=== PATIENT | female | born 1950 | race Caucasian/White ===

== ENCOUNTER → 2018-01-13 08:47 | Outpatient (CLI) | payer OTHER, MEDICARE, SELFPAY | PROVIDERS: Visit Provider Physician Assistant | DX: R30.0 Dysuria (principal) | CPT/HCPCS: 87077; 87086; 87186 ==

== ENCOUNTER → 2018-02-17 15:20 | Outpatient (CLI) | payer OTHER, MEDICARE, SELFPAY | PROVIDERS: PCP Family Medicine; Visit Provider Family Medicine | DX: R30.0 Dysuria (principal) | CPT/HCPCS: 87077; 87086; 87186 ==

== ENCOUNTER → 2018-03-08 08:57 | Outpatient (CLI) | payer OTHER, MEDICARE, SELFPAY ==
[2018-03-08 11:25] LABS: Alanine Aminotransferase 20 IU/L (9-52); Albumin 4.5 g/dL (3.5-5.0); Albumin Globulin Ratio 1.6 (1.0-2.8); Alkaline Phosphatase 45 U/L (38-126); Aspartate Aminotransferase 30 IU/L (14-36); BUN Creatinine Ratio 18.8 (6-22); Bilirubin Total 0.4 mg/dL (0.2-1.3); Blood Urea Nitrogen 15 mg/dL (7-17); Calcium 9.6 mg/dL (8.4-10.2); Carbon Dioxide 26 mmol/L (22-32); Chloride 105 mmol/L (98-107); Cholesterol 161 mg/dL (140-199); Estimated Glomerular Filt Rate > 60.0 mL/min (>60); Globulin 2.9 g/dL (1.7-4.1); Glucose 90 mg/dL (80-110); HDL Cholesterol 73 mg/dL (40-60); HEMOLYSIS < 15 (0-50); LDL Cholesterol Calculated 59 mg/dL (<100); Potassium 4.4 mmol/L (3.4-5.1); Sodium 143 mmol/L (137-145); Total Protein 7.4 g/dL (6.3-8.2); Triglycerides 145 mg/dL (35-150)
== END ==
PROVIDERS: PCP Family Medicine; Visit Provider Family Medicine
DX: E78.5 Hyperlipidemia, unspecified (principal)
CPT/HCPCS: 36415; 80053; 80061

== ENCOUNTER → 2018-06-15 08:41 | Outpatient (CLI) | payer OTHER, MEDICARE, SELFPAY ==
[2018-06-15 09:48] LABS: Add Manual Diff / Slide Review NO; Basophils Absolute Auto 0 /uL (0-100); Basophils Percent Auto 0.8 % (0-2); Eosinophils Absolute Auto 100 /uL (0-450); Eosinophils Percent Auto 1.3 % (2-4); Hematocrit 40.5 % (36-46); Hemoglobin 13.2 g/dL (12.0-16.0); Lymphocytes Absolute Auto 2800 /uL (1100-4500); Lymphocytes Percent Auto 42.7 % (25-40); Mean Corpuscular HGB Conc 32.6 % (30-36); Mean Corpuscular Hemoglobin 29.5 PG (26-34); Mean Corpuscular Volume 90.5 fL (80-100); Monocytes Absolute Auto 500 /uL (0-900); Monocytes Percent Auto 7.4 % (3-14); Neutrophils Absolute Auto 3100 /uL (1500-7000); Neutrophils Percent Auto 47.8 % (50-75); Platelet Count 274 X10^3/uL (150-400); Red Blood Cell Count 4.47 X10^6/uL (4.0-5.2); Red Cell Distribution Width 13.8 % (11.6-14.8); White Blood Cell Count 6.5 X10^3/uL (4.5-11.0)
[2018-06-15 09:50] LABS: Appearance Urine UA CLEAR; Bilirubin Urine UA NEGATIVE (NEGATIVE); Color Urine UA YELLOW; Glucose Urine UA NEGATIVE (Negative); Ketones Urine UA NEGATIVE (NEGATIVE); Leukocyte Esterase Urine UA NEGATIVE (NEGATIVE); Nitrite Urine UA NEGATIVE (Negative); Occult Blood Urine UA 2+ (Negative); Protein Urine UA NEGATIVE (Negative); Specific Gravity Urine UA 1.025 (1.000-1.035); Urobilinogen Urine UA 0.2 E.U./dL (0.2)
[2018-06-15 10:04] LABS: Alanine Aminotransferase 43 IU/L (9-52); Albumin 4.8 g/dL (3.5-5.0); Albumin Globulin Ratio 1.6 (1.0-2.8); Alkaline Phosphatase 49 U/L (38-126); Aspartate Aminotransferase 27 IU/L (14-36); Bacteria Urine Few (2-10); Bilirubin Total 0.5 mg/dL (0.2-1.3); Blood Urea Nitrogen 18 mg/dL (7-17); Calcium 10.3 mg/dL (8.4-10.2); Carbon Dioxide 30 mmol/L (22-32); Chloride 99 mmol/L (98-107); Cholesterol 176 mg/dL (140-199); Culture Indicated Urine Cult Not Indicated; Estimated Glomerular Filt Rate > 60.0 mL/min (>60); Glucose 95 mg/dL (80-110); HDL Cholesterol 88 mg/dL (40-60); HEMOLYSIS < 15 (0-50); LDL Cholesterol Calculated 61 mg/dL (<100); Mucus Urine 1+ (Negative); RBC Urine 1-5/HPF (0-5/HPF); Sodium 140 mmol/L (137-145); Squamous Epithelial Cell Urine 5-10 /HPF; Total Protein 7.8 g/dL (6.3-8.2); Triglycerides 135 mg/dL (35-150); WBC Urine 1-5/HPF (0-5/HPF)
[2018-06-15 10:32] LABS: Vitamin D 25 Hydroxy (D3) 63.2 ng/mL (30.0-100.0)
== END ==
PROVIDERS: PCP Family Medicine; Visit Provider Family Medicine
DX: E78.5 Hyperlipidemia, unspecified (principal); G47.00 Insomnia, unspecified; I10 Essential (primary) hypertension; Z51.81 Encounter for therapeutic drug level monitoring
CPT/HCPCS: 36415; 80053; 80061; 81003; 81015; 82306; 84443; 85025

== ENCOUNTER → 2018-06-30 17:34 | Outpatient (CLI) | payer OTHER, MEDICARE, SELFPAY ==
[2018-06-30 17:43] LABS: Bacteria Urine None Seen
[2018-06-30 19:13] LABS: Appearance Urine UA CLEAR; Bilirubin Urine UA NEGATIVE (NEGATIVE); Color Urine UA YELLOW; Glucose Urine UA NEGATIVE (Negative); Ketones Urine UA NEGATIVE (NEGATIVE); Leukocyte Esterase Urine UA NEGATIVE (NEGATIVE); Nitrite Urine UA NEGATIVE (Negative); Occult Blood Urine UA TRACE-LYSED (Negative); Protein Urine UA NEGATIVE (Negative); Specific Gravity Urine UA 1.025 (1.000-1.035); Urobilinogen Urine UA 0.2 E.U./dL (0.2); pH Urine UA 5.5 (4.5-8.0)
[2018-06-30 19:49] LABS: RBC Urine 0-1/HPF (0-5/HPF); Squamous Epithelial Cell Urine 0-1 /HPF; WBC Urine 0-1/HPF (0-5/HPF)
[2018-06-30 19:50] LABS: Culture Indicated Urine Cult Not Indicated
== END ==
PROVIDERS: PCP Family Medicine; Visit Provider Family Medicine
DX: R31.9 Hematuria, unspecified (principal)
CPT/HCPCS: 81001

== ENCOUNTER 2021-10-30 19:17 | Observation (INO) | payer MEDICARE, OTHER, SELFPAY ==
[2021-10-30] VITALS (12 sets, daily range): BP systolic 151–168; BP diastolic 58–73; PULSE 60–79; RESP 15–27; TEMP 36.3–36.9; O2SAT 97–100; BMI 23.3
--- NOTE | 2021-10-30 19:21 | DI.CT.S_ITS ---
PROCEDURE: CT HEAD/BRAIN WO CON INDICATIONS: fall hit head TECHNIQUE: Noncontrast 4.5 mm thick angled axial sections acquired from the foramen magnum to the vertex, with coronal and sagittal reformats. For radiation dose reduction, the following was used: automated exposure control, adjustment of mA and/or kV according to patient size. COMPARISON: [facility], CT, HEAD WITHOUT CONTRAST, 10/05/2011, 17:24. FINDINGS: Image quality: Excellent. CSF spaces: Basal cisterns are patent. No extra-axial fluid collections. The ventricles are symmetric in size and shape. Brain: No intracranial bleeds or masses. There is cerebral volume loss for age, with resultant ventricular and sulcal prominence. There is intracranial internal carotid artery atherosclerosis. Skull and face: Calvarium and visualized facial bones appear intact, without suspicious lesions. Sinuses: Visualized sinuses and mastoids are clear. IMPRESSION: No evidence acute intracranial process. Dictated by: Marcos Trinh M.D. on 10/30/2021 at 19:47 Approved by: Marcos Trinh M.D. on 10/30/2021 at 19:48
--- NOTE | 2021-10-30 19:54 | ED_ITS ---
HPI - Fall General Chief Complaint: Fall Stated Complaint: fall at [facility] with amnesia Time Seen by Provider: 10/30/21 19:53 History of Present Illness HPI Narrative: 70-year-old woman with a history of hypertension and hyperlipidemia who has a strong family history for cardiac syncope and sudden cardiac . Her father, and uncle and a nephew have all young related to that. 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 She has to live in [place] but has since moved down to [place]. She was back at the [facility], had a double gin and tonic was playing this lots thinking that she needed to go upstairs in get ready for the republican and then woke up in an ambulance. Medics report that security video show her simply upright and then flat on the floor. She has significant amnesia and no recollection of approximately 3-4 hours of time. She is slightly perseverating but not complaining of headache, nausea, vomiting, chest pain, palpitations, any chest pain, any musculoskeletal pain. She has not recently been sick with fevers cough chills. Related Data Home Medications Medication Instructions Recorded Confirmed biotin 1 mg capsule 1 mg PO DAILY 01/13/18 06/23/18 vitamin B complex (B 1 tab PO DAILY 01/13/18 06/23/18 Complex-Vitamin B12 tablet) aspirin 81 mg chewable tablet 81 mg PO DAILY 02/17/18 06/23/18 cholecalciferol (vitamin D3) 50 5 unit PO DAILY 06/23/18 06/23/18 mcg (2,000 unit) capsule Previous Rx's Medication Instructions Recorded benzocaine 10 % mucosal gel See Rx Instructions mucous 06/15/18 membrane DAILY PRN mouth irritation #7.1 grams metoprolol succinate 100 mg 100 mg PO DAILY #90 ea 06/23/18 capsule sprinkle, ext. release 24 hr fluconazole 150 mg tablet 150 mg PO ONCE #1 tab 06/30/18 (Diflucan) nitrofurantoin 100 mg PO BID #14 caps 06/30/18 monohydrate/macrocrystals 100 mg capsule (Macrobid) temazepam 30 mg capsule 30 mg PO BEDTIME PRN sleep #30 caps 10/12/18 metoprolol succinate 100 mg 100 mg PO DAILY #90 tabs 07/18/19 tablet,extended release 24 hr rosuvastatin 20 mg tablet 20 mg PO DAILY #90 tabs 07/18/19 lisinopril 20 mg tablet 20 mg PO DAILY #30 tabs 09/26/19 Allergies Allergy/AdvReac Type Severity Reaction Status Date / Time codeine AdvReac Verified 06/23/18 15:01 CEPHALOSPORIN Allergy Intermediate N/V Uncoded 01/13/18 13:50 SULFA Allergy Intermediate HIVES Uncoded 01/13/18 13:50 Review of Systems Review of Systems Narrative: Remainder of complete review of systems is otherwise unremarkable except for that included in the HPI. Patient History Medical History CAD (coronary artery disease) (2017) Cataract (2017) Cervical spine disease (1962) Chicken pox (1957) Fractures (2014) Gastric ulcer Heart disease Hypertension (2014) Measles (1955) Mumps (1954) Osteoporosis (2014) Scoliosis (1962) Surgical History Anesthesia complication History of cholecystectomy (2000) History of hernia repair (1998) History of hysterectomy (1973) History of spinal fusion (1962) Family History Father Heart disease Hypertension Mother Alzheimer's disease Brother Heart disease Brother Heart disease Hyperlipidemia Hypertension Grandfather No problems noted. Grandmother No problems noted. Grandfather Heart disease Hypertension Grandmother No problems noted. Social History Smoking Status: Never smoker alcohol intake: current Smoking Status: Never smoker Exam Initial Vital Signs Initial Vital Signs: Vital Signs Temperature 98.4 F 10/30/21 19:17 Pulse Rate 60 10/30/21 19:17 Respiratory Rate 16 10/30/21 19:17 Blood Pressure 168/73 H 10/30/21 19:17 Pulse Oximetry 97 10/30/21 19:17 Oxygen Delivery Method 10/30/21 19:17 General: Healthy appearing, in no acute distress. Approximately 4 hours of ret rograde amnesia, mild perseveration but able to describe events up to that time without difficulty. HEENT: Moist mucous membranes, normal sclera with reactive pupils, minor abrasion over the bridge of the nose and some bruising over the left cheek without obvious facial bone injuries Neck: No JVD, supple, no cervical spine tenderness Respiratory: Lungs are clear to auscultation, no wheezing no rales no rhonchi. Full and symmetrical air movement Chest: No musculoskeletal tenderness, no abrasions or contusions Cardiac: Regular rate and rhythm no murmurs no bruits Abdomen: Soft, nontender, good bowel tones, no flank pain Skin: Warm and dry, no rashes Neurologic: Retrograde amnesia but otherwise Grossly neurologically intact with no obvious asymmetries or abnormalities Extremities: Minor contusion to the left 5th finger, well perfused Psych: Cooperative, appropriate insight and affect Course Orders Ordered: ED Orders 10/30/21 19:10 Complete Blood Count AUTO DIFF Stat Comprehensive Metabolic Panel Stat Ethanol (ETOH) Stat Prothrombin Time INR Stat Troponin & CK Cardiac Panel Stat 10/30/21 19:21 CT head/brain wo con Stat Vital Signs Vital signs: Vital Signs - 8 hr 10/30/21 19:17 10/30/21 19:36 10/30/21 20:00 Temperature 98.4 F Pulse Rate 60 67 66 Respiratory Rate 16 Blood Pressure 168/73 H Pulse Oximetry 97 100 100 Oxygen Delivery Method Room Air 10/30/21 20:24 10/30/21 20:24 10/30/21 20:30 Temperature Pulse Rate 66 Respiratory Rate 15 Blood Pressure 160/69 H 151/58 H Pulse Oximetry 100 Oxygen Delivery Method 10/30/21 20:30 Temperature Pulse Rate 65 Respiratory Rate 27 H Blood Pressure Pulse Oximetry 100 Oxygen Delivery Method MDM - Fall Lab Data Result diagrams: 10/30/21 19:10 10/30/21 19:10 Labs: Lab Results 10/30/21 10/30/21 10/30/21 Range/Units 19:10 19:10 19:10 WBC 7.7 (4.5-11.0) X10^3/uL RBC 4.65 (4.0-5.2) X10^6/uL Hgb 13.2 (12.0-16.0) g/dL Hct 39.8 (36-46) % MCV 85.6 (80-100) fL MCH 28.4 (26-34) PG MCHC 33.2 (30-36) % RDW 14.5 (11.6-14.8) % Plt Count 288 (150-400) X10^3/uL Neut % (Auto) 32.1 L (50-75) % Lymph % (Auto) 59.9 H (25-40) % Yell % (Auto) 6.4 (3-14) % Eos % (Auto) 0.9 L (2-4) % Baso % (Auto) 0.7 (0-2) % Neut # (Auto) 2500 (5272-0382) /uL Lymph # (Auto) 4600 H (4924-4553) /uL Yell # (Auto) 500 (0-900) /uL Eos # (Auto) 100 (0-450) /uL Baso # (Auto) 100 (0-100) /uL PT 10.4 (10.1-12.7) SECONDS INR 0.9 (0.9-1.3) Sodium 141 (137-145) mmol/L Potassium 3.5 (3.4-5.1) mmol/L Chloride 101 (98-107) mmol/L Carbon Dioxide 27 (22-32) mmol/L BUN 11 (7-17) mg/dL Creatinine 0.92 (0.52-1.04) mg/dL Estimated GFR > 60 (>60) mL/min BUN/Creatinine Ratio 12.0 (6-22) Glucose 115 H (80-110) mg/dL Calcium 9.8 (8.4-10.2) mg/dL Total Bilirubin 0.3 (0.2-1.3) mg/dL AST 29 (14-36) IU/L ALT 17 (<35) IU/L Alkaline Phosphatase 61 (38-126) U/L Total Creatine Kinase 62 (30-135) U/L CK-MB (CK-2) TNP CK-MB (CK-2) Rel Index TNP Troponin I < 0.012 (0.01-0.034) ng/mL Total Protein 8.8 H (6.3-8.2) g/dL Albumin 5.2 H (3.5-5.0) g/dL Globulin 3.6 (1.7-4.1) g/dL Albumin/Globulin Ratio 1.4 (1.0-2.8) Ethyl Alcohol 185 H ( - 10) mg/dL Point of Care Testing Glucose POC [address] scan - head: Radiologist's Impression: FINDINGS:? Image quality:? Excellent.? ? CSF spaces:? Basal cisterns are patent.? No extra-axial fluid collections.? The ventricles are symmetric in size and shape.? ? Brain:? No intracranial bleeds or masses.? There is cerebral volume loss for age, with resultant ventricular and sulcal prominence.? There is intracranial internal carotid artery atherosclerosis.? ? Skull and face:? Calvarium and visualized facial bones appear intact, without suspicious lesions.? ? Sinuses:? Visualized sinuses and mastoids are clear.? ? IMPRESSION:? No evidence acute intracranial process. ? ? Dictated by: Marcos Trinh M.D. on 10/30/2021 at 19:47 ECG Data Interpretation: Sinus rhythm at a rate of 60 Left bundle branch block No acute ischemic changes MDM Narrative Medical decision making narrative: 70-year-old woman at the [facility], she did have a double in her alcohol level is consistent with that. Video from the can see no suggests acute syncope that is more fitting with acute cardiac syncope rather than alcohol related issues. There is no evidence of stroke, infection or acute coronary syndrome. Given her strong family history for sudden cardiac arrhythmias this is certainly concerning. She also has retrograde amnesia and concussion without evidence of intracranial hemorrhage. Labs are unremarkable aside from the elevated alcohol level. At this time will recommend observation overnight with telemetry. Will need to contact her cardiology office in the morning to see what recent studies have been done, if more needs to be done and arrange for acute follow-up. Care is discussed with the hospitalist service and she is safe for transfer to the floor. Discharge Plan Departure Patient Disposition: Admitted as Observation Clinical Impression: Cardiac syncope, Amnesia (retrograde) Concussion Qualifiers: Encounter type: initial encounter Loss of consciousness presence/duration: with LOC of 30 min or less Qualified Code(s): S06.0X1A - Concussion with loss of consciousness of 30 minutes or less, initial encounter
[2021-10-30 20:03] LABS: INR 0.9 (0.9-1.3); Prothrombin Time 10.4 SECONDS (10.1-12.7)
[2021-10-30 20:08] LABS: Alanine Aminotransferase 17 IU/L (<35); Albumin 5.2 g/dL (3.5-5.0); Albumin Globulin Ratio 1.4 (1.0-2.8); Alkaline Phosphatase 61 U/L (38-126); Aspartate Aminotransferase 29 IU/L (14-36); Bilirubin Total 0.3 mg/dL (0.2-1.3); Blood Urea Nitrogen 11 mg/dL (7-17); Calcium 9.8 mg/dL (8.4-10.2); Carbon Dioxide 27 mmol/L (22-32); Chloride 101 mmol/L (98-107); Creatine Kinase 62 U/L (30-135); Estimated Glomerular Filt Rate > 60 mL/min (>60); Ethanol (ETOH) 185 mg/dL; Globulin 3.6 g/dL (1.7-4.1); Glucose 115 mg/dL (80-110); HEMOLYSIS < 15 (0-50); Potassium 3.5 mmol/L (3.4-5.1); Sodium 141 mmol/L (137-145); Total Protein 8.8 g/dL (6.3-8.2)
[2021-10-30 20:11] LABS: Add Manual Diff / Slide Review NO; Basophils Absolute Auto 100 /uL (0-100); Basophils Percent Auto 0.7 % (0-2); Eosinophils Absolute Auto 100 /uL (0-450); Eosinophils Percent Auto 0.9 % (2-4); Hematocrit 39.8 % (36-46); Hemoglobin 13.2 g/dL (12.0-16.0); Lymphocytes Absolute Auto 4600 /uL (1100-4500); Lymphocytes Percent Auto 59.9 % (25-40); Mean Corpuscular HGB Conc 33.2 % (30-36); Mean Corpuscular Hemoglobin 28.4 PG (26-34); Mean Corpuscular Volume 85.6 fL (80-100); Monocytes Absolute Auto 500 /uL (0-900); Monocytes Percent Auto 6.4 % (3-14); Neutrophils Absolute Auto 2500 /uL (1500-7000); Neutrophils Percent Auto 32.1 % (50-75); Platelet Count 288 X10^3/uL (150-400); Red Blood Cell Count 4.65 X10^6/uL (4.0-5.2); Red Cell Distribution Width 14.5 % (11.6-14.8); White Blood Cell Count 7.7 X10^3/uL (4.5-11.0)
[2021-10-30 20:19] LABS: Troponin I < 0.012 ng/mL (0.01-0.034)
--- NOTE | 2021-10-30 20:38 | PC.NURSE ---
[place] 1400 after having one gin and tonic and playing the slots for a while, she decided to go upstairs to her room and pack up and get ready to go. the next thing she remembers is being in the ambulance being told she had fallen down. pt is unable to answer questions about how she was feeling prior to falling. EMS stated they had her on camera falling/passing out
[2021-10-30 23:47] LABS: COVID19 -Nasal RAPID Negative (Negative)
--- NOTE | 2021-10-31 00:11 | P.HP_ITS ---
History of Present Illness History of Present Illness Date Patient Seen: 10/31/21 Time Patient Seen: 00:11 Chief complaint: [facility] Narrative: Nora Rico is a pleasant 70 year old female who [facility] to her room as she was overnighting to attend a [place] [facility] of a colleague in [place] when apparently she passed out. She does not recall what happened and woke up in the ambulance. She was told by the EMS that her fall was captured on video at the [facility] and apparently she fell from a sitting position rather than arising than falling. She denies any chest pain, dizziness, she does have left-sided facial pain where she fell in addition to bruising on her left arm. She does complain of a mild headache currently. She states that she has an old left bundle branch block she has had for quite some time and always shows up on her EKGs. She stated that yesterday she was ?off? and felt that way this morning but not poor enough to prevent her from attending her friend's [place] [facility] [place]. She felt her normal self when she drove up here. Of concern is that her father, brother, uncle and a nephew have all from sudden cardiac arrest in their 40s and her brother in his 60s. 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 Head CT was negative for any acute intracranial process. EKG indicated a left bundle. She is afebrile, blood pressure is 152/59, heart rate 79, respiratory rate 18, oxygen saturation 100% on room air she weighs 65.7 kg with a BMI of 23.3. CBC and BMP are unremarkable. Troponin is negative, TSH is low at 0.02 and her free T4 is pending she did have an elevated alcohol level of 185 though she did have 2 drinks at the [facility]. Medical, surgical and family history reviewed with the patient. She has a cousin and uncle who in their 40 also of sudden cardiac arrest. Patient History Medical History CAD (coronary artery disease) (2017) Cataract (2017) Cervical spine disease (1962) Chicken pox (8) Fractures (2014) Gastric ulcer Heart disease Hypertension (2014) Measles (1956) Mumps (1955) Osteoporosis (2015) Scoliosis (1963) Surgical History Anesthesia complication History of cholecystectomy (2000) History of hernia repair (1998) History of hysterectomy (1973) History of spinal fusion (1962) Family & Social History Family History (Updated 10/31/21 @ 00:13 by CRISTEL Kothari) Father Heart disease Hypertension Cardiac arrest Mother Alzheimer disease Cardiac arrest Brother Heart disease Brother Heart disease Hyperlipidemia Hypertension Cardiac arrest Grandfather No problems noted. Grandmother No problems noted. Grandfather Heart disease Hypertension Grandmother No problems noted. Safety & Behavioral: Feels Safe in Current Yes Environment Been Physically Hurt or No Threatened By a Person Tobacco & Substance use: Smoking Status Never smoker alcohol intake current Meds Home Medications and Allergies Home Medications Medication Instructions Recorded Confirmed Type rosuvastatin 20 mg tablet 20 mg PO DAILY #90 tabs 07/18/19 10/30/21 Rx lisinopril 20 mg tablet 20 mg PO DAILY #30 tabs 09/26/19 10/30/21 Rx trazodone 100 mg tablet 100 mg PO BEDTIME 10/30/21 10/30/21 History Allergies Allergy/AdvReac Type Severity Reaction Status Date / Time codeine AdvReac Verified 06/23/18 15:01 CEPHALOSPORIN Allergy Intermediate N/V Uncoded 01/13/18 13:50 SULFA Allergy Intermediate HIVES Uncoded 01/13/18 13:50 Review of Systems Review of Systems ROS: Yes All systems reviewed with the patient and are negative except as otherwise documented Exam Vital Signs (past 8 hours): - 10/30/21 19:17 10/30/21 19:36 10/30/21 20:00 Temperature 98.4 F Pulse Rate 60 67 66 Respiratory Rate 16 Blood Pressure 168/73 H Pulse Oximetry 97 100 100 Oxygen Delivery Method Room Air 10/30/21 20:24 10/30/21 20:24 10/30/21 20:30 Temperature Pulse Rate 66 Respiratory Rate 15 Blood Pressure 160/69 H 151/58 H Pulse Oximetry 100 Oxygen Delivery Method 10/30/21 20:30 10/30/21 21:00 10/30/21 21:30 Temperature Pulse Rate 65 67 69 Respiratory Rate 27 H 15 18 Blood Pressure Pulse Oximetry 100 100 99 Oxygen Delivery Method 10/30/21 22:00 10/30/21 22:30 10/30/21 23:00 Temperature Pulse Rate 72 69 75 Respiratory Rate 23 25 H 22 Blood Pressure Pulse Oximetry 100 100 Oxygen Delivery Method 10/30/21 23:12 10/30/21 23:12 10/30/21 23:18 Temperature 97.3 F L Pulse Rate 72 79 Respiratory Rate 17 18 Blood Pressure 151/65 H 152/59 H Pulse Oximetry 100 100 Oxygen Delivery Method 10/30/21 23:18 Temperature Pulse Rate Respiratory Rate Blood Pressure Pulse Oximetry 100 Oxygen Delivery Method Room Air Oxygen Delivery Method Room Air Narrative Exam Narrative: Gen: Alert, oriented, well-developed 70 y.o. female, NAD HEENT: normocephalic, left sided facial bruising w/a laceration to the bridge of her nose, conjunctiva clear, sclera non-icteric, oral mucosa pink and moist Neck: supple, full ROM, no JVD, trachea is midline Resp: Lungs CTA, non-labored breathing CV: RRR, no murmur or rubs Abd: soft, non-tender, normoactive BTs Skin: no lesions or rashes, dry and intact Neuro: retrograde amnesiac of what led to her syncopal episode, alert and oriented X 4 w/no focal deficits. Speech clear and coherent. Extremities: moves all 4 extremities, is ambulatory, negative Gladys?s sign Psyche: normal mood and affect. Objective Labs Result Diagrams: 10/30/21 19:10 10/30/21 19:10 Labs: Laboratory Results - last 24 hr 10/30/21 10/30/21 10/30/21 19:10 19:10 19:10 WBC 7.7 RBC 4.65 Hgb 13.2 Hct 39.8 MCV 85.6 MCH 28.4 MCHC 33.2 RDW 14.5 Plt Count 288 Neut % (Auto) 32.1 L Lymph % (Auto) 59.9 H Rapides % (Auto) 6.4 Eos % (Auto) 0.9 L Baso % (Auto) 0.7 Neut # (Auto) 2500 Lymph # (Auto) 4600 H [place] # (Auto) 500 Eos # (Auto) 100 Baso # (Auto) 100 PT 10.4 INR 0.9 Sodium 141 Potassium 3.5 Chloride 101 Carbon Dioxide 27 BUN 11 Creatinine 0.92 Estimated GFR > 60 BUN/Creatinine Ratio 12.0 Glucose 115 H Calcium 9.8 Total Bilirubin 0.3 AST 29 ALT 17 Alkaline Phosphatase 61 Total Creatine Kinase 62 CK-MB (CK-2) TNP CK-MB (CK-2) Rel Index TNP Troponin I < 0.012 Total Protein 8.8 H Albumin 5.2 H Globulin 3.6 Albumin/Globulin Ratio 1.4 Ethyl Alcohol 185 H SARS-CoV-2 (PCR) 10/30/21 20:25 WBC RBC Hgb Hct MCV MCH MCHC RDW Plt Count Neut % (Auto) Lymph % (Auto) Rapides % (Auto) Eos % (Auto) Baso % (Auto) Neut # (Auto) Lymph # (Auto) [place] # (Auto) Eos # (Auto) Baso # (Auto) PT INR Sodium Potassium Chloride Carbon Dioxide BUN Creatinine Estimated GFR BUN/Creatinine Ratio Glucose Calcium Total Bilirubin AST ALT Alkaline Phosphatase Total Creatine Kinase CK-MB (CK-2) CK-MB (CK-2) Rel Index Troponin I Total Protein Albumin Globulin Albumin/Globulin Ratio Ethyl Alcohol SARS-CoV-2 (PCR) Negative Assessment & Plan Assessment & Plan narrative: Nora Rico is observed overnight for a witnessed syncopal episode in the setting of a strong family history of premature sudden cardiac . Witnessed syncope and fall * telemetry * po tylenol and tramadol for pain * Will need to contact her hole digger operator for close follow-up. She is located in [place] Essential hypertension, chronic * continue home dose of lisinopril 20 mg po daily Dyslipidemia, chronic * continue rosuvastatin 20 mg po daily Insomnia * Continue home dose of trazodone VTE Prophylaxis: Wells risk score 0 Enoxaparin 40 mg subQ once daily Bilateral SCDs Patient is placed into observation as her stay is not expected to exceed 2 midnights. FEN: IV fluids: saline lock, diet: heart healthy, labs: CBC, C/BMP, liver enzymes, Mag, PT/INR Consultants None Dispo: probable d/c to home Code status: full code as discussed with the patient who identifies her Armando her surrogate and POA. [X] I have utilized all available immediate resources to obtain, update, or review of the patient's current medications COVID-19 COVID-19 status: Negative Result date/Date tested (Pos, Neg/Pending): 10/31/21 Scores Wells' Criteria for PE Clinical signs and symptoms of DVT: No PE is #1 Dx or equally likely: No Heart rate > 100: No Immobilization at least 3 days or surg in previous 4 weeks: No History of PE or DVT: No Hemoptysis: No Malignancy w/Treatment within 6 months or palliative: No Wells' PE Score total: 0 Quality VTE Deep Vein Thrombosis/Pulmonary Embolism Present on Admission: No MIPS - Admit I confirm the patient?s Advance Care Plan is present, Code status is documented, Surrogate decision maker is in patient?s record [If Yes, STOP here]: Yes MIPS - DC The patient has current or prior documentation of left ventricular ejection fraction (LVEF) less than 40%, or moderate or severely depressed left ventricula r systolic function.: No
[2021-10-31 00:13] LABS: TSH w/ Reflex to FT4 < 0.02 uIU/mL (0.47-4.68)
[2021-10-31] MEDS: TRAZODONE 100 MG TABLET PO (00:28)
[2021-10-31] MEDS: ACETAMINOPHEN 325 MG TABLET 650 MG PO (00:28)
[2021-10-31] MEDS: TRAMADOL 50 MG TABLET PO (02:50)
[2021-10-31 04:00] VITALS: BP 109/49; PULSE 70; RESP 15; TEMP 36.1; O2SAT 96
[2021-10-31 05:18] VITALS: O2SAT 99
[2021-10-31 06:03] LABS: Add Manual Diff / Slide Review NO; Basophils Absolute Auto 100 /uL (0-100); Basophils Percent Auto 0.7 % (0-2); Eosinophils Absolute Auto 100 /uL (0-450); Eosinophils Percent Auto 0.8 % (2-4); Hematocrit 34.7 % (36-46); Lymphocytes Absolute Auto 2000 /uL (1100-4500); Lymphocytes Percent Auto 25.7 % (25-40); Mean Corpuscular HGB Conc 34.5 % (30-36); Mean Corpuscular Hemoglobin 28.9 PG (26-34); Mean Corpuscular Volume 83.8 fL (80-100); Monocytes Absolute Auto 600 /uL (0-900); Monocytes Percent Auto 7.4 % (3-14); Neutrophils Absolute Auto 5000 /uL (1500-7000); Neutrophils Percent Auto 65.4 % (50-75); Platelet Count 273 X10^3/uL (150-400); Red Blood Cell Count 4.15 X10^6/uL (4.0-5.2); Red Cell Distribution Width 13.9 % (11.6-14.8); White Blood Cell Count 7.7 X10^3/uL (4.5-11.0)
[2021-10-31 06:30] LABS: BUN Creatinine Ratio 15.2 (6-22); Blood Urea Nitrogen 14 mg/dL (7-17); Calcium 8.9 mg/dL (8.4-10.2); Carbon Dioxide 23 mmol/L (22-32); Chloride 105 mmol/L (98-107); Cholesterol 145 mg/dL (140-199); Estimated Glomerular Filt Rate > 60 mL/min (>60); Glucose 90 mg/dL (80-110); HDL Cholesterol 62 mg/dL (40-60); HEMOLYSIS < 15 (0-50); LDL Cholesterol Calculated 46 mg/dL (<100); Magnesium 1.8 mg/dL (1.6-2.3); Potassium 3.9 mmol/L (3.4-5.1); Sodium 139 mmol/L (137-145); Triglycerides 183 mg/dL (35-150)
[2021-10-31 06:31] LABS: Alanine Aminotransferase 14 IU/L (<35); Albumin 4.2 g/dL (3.5-5.0); Albumin Globulin Ratio 1.4 (1.0-2.8); Alkaline Phosphatase 53 U/L (38-126); Aspartate Aminotransferase 24 IU/L (14-36); Bilirubin Total 0.4 mg/dL (0.2-1.3); Bilirubin Unconjugated 0.2 mg/dL (0.0-1.1); Globulin 2.9 g/dL (1.7-4.1); HEMOLYSIS < 15 (0-50); Total Protein 7.1 g/dL (6.3-8.2)
[2021-10-31 07:40] VITALS: BP 110/54; PULSE 68; RESP 16; TEMP 36.3; O2SAT 97
[2021-10-31 08:07] VITALS: O2SAT 97
[2021-10-31] MEDS: ATORVASTATIN 20 MG TABLET 40 MG PO (08:07)
--- NOTE | 2021-10-31 08:12 | DI.ECHO.S_ITS ---
[place] [facility]---------+ [facility] +---------+ : : [address] : : : : [id number] : : : : Phone: [phone] Echocardiogram Report + + :Name: CADENCE LOPEZ Study Date: 10/31/2021 Height: 66 in : :[facility] ReadingLocation: Weight: 145 lb : : Gender: Female BSA: 1.7 m2 : :: 1950 Age: 70 yrs BP: 127/64 mmHg: :Reason For Study: SYNCOPE, FAMIILY HX OF SUDDEN CARDIAC : :Ordering Physician: ROSETTE, : :YEMI CABRERA Performed By: Katherine Macdonald : :Referring: YEMI DINERO : + + Interpretation Summary The ejection fraction is estimated to be 55-60%. Diastolic parameters suggest probable normal left ventricular diastolic function and normal filling pressures. The right ventricle is normal in size and function. The IVC is of normal diameter and collapses greater than 50% with a sniff. This suggests a low right atrial pressure of 3 mm Hg. No significant valvular disease. Procedure: A two-dimensional transthoracic echocardiogram with color flow and Doppler was performed. The study quality was technically adequate. There is no prior echocardiogram noted for this patient. The patient was in sinus rhythm with heart rates between 68-75 bpm during the exam. Left Ventricle: The left ventricle is normal in size and wall thickness. The ejection fraction is estimated to be 55-60%. Septal motion is consistent with conduction abnormality. Diastolic parameters suggest probable normal left ventricular diastolic function and normal filling pressures. Right Ventricle: The right ventricle is normal in size and function. Atria: The left atrial size is normal. Right atrial size is normal. There is no Doppler evidence for an interatrial shunt. Mitral Valve: The mitral valve leaflets are slightly calcified. There is borderline mitral valve prolapse. There is trace mitral regurgitation. Aortic Valve: The aortic valve is trileaflet. The aortic valve is slightly calcified. The aortic valve opens well. There is no aortic valve stenosis. There is trace aortic regurgitation. Tricuspid Valve: The tricuspid valve is normal in structure and function. There is trace tricuspid regurgitation. Pulmonic Valve: The pulmonic valve leaflets are thin and pliable; valve motion is normal. There is a trace or physiologic amount of pulmonic regurgitation. Great Vessels: The aortic root is normal size. The ascending aorta is at the upper limits of normal in size. The IVC is of normal diameter and collapses greater than 50% with a sniff. This suggests a low right atrial pressure of 3 mm Hg. Pericardium/ Pleura There is no pericardial effusion. There is no pleural effusion. MMode/2D Measurements & Calculations LVIDd: 4.2 cm LVOT diam: 2.0 cm LVIDs: 3.0 cm Ao root diam: 3.5 cm FS: 27.7 % asc Aorta Diam: 3.8 cm IVSd: 0.71 cm Ao Arch Diam (Prox Trans): 2.5 cm LVPWd: 0.68 cm LV greene. diameter/BSA (cm/m^2): 2.4 LV sys. diameter/BSA (cm/m^2): 1.7 LA A2 area: 11.1 cm2 RA long axis: 4.5 cm LA A4 area: 14.6 cm2 RA area: 13.7 cm2 LA length (vol): 4.1 cm RA vol: 35.8 ml LA vol: 33.6 ml RA : 20.5 ml/m2 LA vol index: 19.2 ml/m2 IVC diam: 0.94 cm RVD1 (basal): 3.6 cm RVD2 (mid): 2.8 cm TAPSE: 1.8 cm Doppler Measurements & Calculations Ao V2 max: 121.9 cm/sec LVOT Max Viplu: 74.5 cm/sec Ao V2 mean: 95.2 cm/sec LV V1 max P.2 mmHg Ao max P.9 mmHg LV V1 VTI: 16.6 cm Ao mean P.8 mmHg DANIEL(I,D): 2.0 cm2 Ao V2 VTI: 26.1 cm DANIEL(V,D): 1.9 cm2 sev ratio: 0.64 DANIEL indexed to BSA (cm^2/m^2): 1.2 MV E max vipul: 75.8 cm/sec TR max vipul: 210.6 cm/sec MV A max vipul: 116.2 cm/sec TR max P.1 mmHg MV E/A: 0.65 PA V2 max: 123.1 cm/sec Med Peak E' Vipul: 5.5 cm/sec PA V2 mean: 79.2 cm/sec E/E' med: 13.8 PA mean P.9 mmHg Lat Peak E' Vipul: 7.1 cm/sec PA pr(Accel): 43.0 mmHg E/E' lat: 10.7 E/e' average: 12.3 MV dec time: 0.30 sec SV(LVOT): 53.1 ml Reading Physician:KAMARI
[2021-10-31 08:47] LABS: Troponin I < 0.012 ng/mL (0.01-0.034)
--- NOTE | 2021-10-31 12:16 | CM.DANOTE ---
DCP Assessment: Payor: Medicare PCP: Rosa Bryant MD Pt is a 70 y.o. F who [place] the [place]. Pt stated that she was told by EMS that her [place] and that she fell from a sitting positiong. Pt has a past medical history of CAD, HTN, Osteoporosis, and scoliosis. Pt admitted to the floor under observation for further evaluation. Pt to recieve echo today. DCP met with pt this morning bedside. Pt sitting up in bed and eating breakfast. DCP introduced herself and role. Pt states that she lives with her spouse, Jericho, in a 2 story house in [place]. Pt states that she still drives POV and declines any DME use. Pt states that she has a new name and that she hopes it is reflected in the system. DCP confirmed new name with her. Pt states that she is ready to discharge and she will be driving home herself. Pt states that if MD advises her not to drive home, pt spouse will come pick her up. Pt denies any resources at this time. DCP identified no needs. Whiteboard updated and instructed to call. P: Once pt is medically stable, pt to discharge back home via POV. Kelly Schwab RN/HARDIK Discharge Planning/Care Management CM Discharge Assessment Start: 10/31/21 12:15 Freq: Status: Active Protocol: Document 10/31/21 12:15 MADAI (Rec: 10/31/21 12:16 MADAI [id number]) Discharge Planning Assessment Assigned Capacity Analyst Kelly Schwab RN/HARDIK Advance Directives? No History Provided By Patient Prior Living Arrangements House Household Members spouse Type of transporation used prior to Drives own vehicle admit Independent with ADL's Yes Is patient alert and oriented? Yes Discharge Plan Home Referrals Initiated None needed Additional Comment At this time Whiteboard Updated in Patient Room with Yes name and ext. # of Capacity Analyst Comment Instructed to call Review Status In Process Please Provide Date Initial DC 10/31/21 Assessment Was Performed Next Review Type Continued Stay Review
--- NOTE | 2021-10-31 13:02 | P.DS_ITS ---
History of Present Illness History of Present Illness Date Patient Seen: 10/31/21 Time Patient Seen: 15:00 Chief complaint: fall at [facility] with amnesia Narrative: Nora Rico is a pleasant 70 year old female who was at the local [facility] getting ready to go back to her room as she was overnighting to attend a correction constitution party of a colleague in [place] when apparently she passed out. She does not recall what happened and woke up in the ambulance. She was told by the EMS that her fall was captured on video at the [facility] and apparently she fell from a sitting position rather than arising than falling. She denies any chest pain, dizziness, she does have left-sided facial pain where she fell in addition to bruising on her left arm. She does complain of a mild headache currently. She states that she has an old left bundle branch block she has had for quite some time and always shows up on her EKGs. She stated that yesterday she was ?off? and felt that way this morning but not poor enough to prevent her from attending her friend's correction. She felt her normal self when she drove up here. Of concern is that her father, brother, uncle and a nephew have all from sudden cardiac arrest in their 40s and her brother in his 60s. 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 Head CT was negative for any acute intracranial process. EKG indicated a left bundle. She is afebrile, blood pressure is 152/59, heart rate 79, respiratory rate 18, oxygen saturation 100% on room air she weighs 65.7 kg with a BMI of 23.3. CBC and BMP are unremarkable. Troponin is negative, TSH is low at 0.02 and her free T4 is pending she did have an elevated alcohol level of 185 though she did have 2 drinks at the [facility]. Medical, surgical and family history reviewed with the patient. She has a cousin and uncle who in their 40 also of sudden cardiac arrest. Discharge Providers Provider Date of admission: 10/30/21 22:45 Discharge Date: 10/31/21 Primary care physician: Vida Valverde DO Discharge provider: Toby George DO Summary Hospital Course Discharge Diagnosis: Syncope, with family history of sudden cardiac Essential hypertension, chronic Dyslipidemia, chronic Insomnia Hospital Course: This is a 70-year-old female with a past medical history of hypertension, hyperlipidemia, insomnia who presented to the emergency room after an episode of syncope. Given her presentation with out any prodrome, and her family history of sudden cardiac, the patient was admitted for further evaluation and echocardiogram with telemetry monitoring. No events were noted on her telemetry over the course of her admission. Echocardiogram showed a low normal ejection fraction and no significant valvular pathology. The patient plans to follow-up with her outpatient stummel selector, for possible further evaluation including a Holter monitor. No medication changes are recommended at this time. Exam Vital Signs (past 8 hours): - 10/31/21 05:18 10/31/21 07:40 10/31/21 08:07 Temperature 97.4 F L Pulse Rate 68 Respiratory Rate 16 Blood Pressure 110/54 L Pulse Oximetry 99 97 Oxygen Delivery Method Room Air Room Air Oxygen Flow Rate 0 10/31/21 08:07 Temperature Pulse Rate Respiratory Rate Blood Pressure Pulse Oximetry 97 Oxygen Delivery Method Room Air Oxygen Flow Rate Oxygen Delivery Method Room Air Oxygen Flow Rate 0 Narrative Exam Narrative: General:? Patient is well developed and well nourished, in no distress at this time. Chest:? Normal AP diameter and contour without kyphoscoliosis, no tachypnea, equal chest rise bilaterally. Lungs:? CTA b/l no wheezing rhonchi or rales. Cardio:?RRR no m/r/g. Musculoskeletal:? Muscle strength and tone are equal within normal limits, no d eformity. Extremities: No edema or joint effusions. No cyanosis or clubbing. Neuro:? Alert and orientated x3,? sensation to touch intact in all extremities, no gross deficits noted of cranial nerves. Psych:? Patient has a well-kept appearance, appropriate affect, mental status attitude thought context and judgment are appropriate for age. Objective Labs Result Diagrams: 10/31/21 05:20 10/31/21 05:20 Labs: Laboratory Results - last 24 hr 10/30/21 10/30/21 10/30/21 19:10 19:10 19:10 WBC 7.7 RBC 4.65 Hgb 13.2 Hct 39.8 MCV 85.6 MCH 28.4 MCHC 33.2 RDW 14.5 Plt Count 288 Neut % (Auto) 32.1 L Lymph % (Auto) 59.9 H [place] % (Auto) 6.4 Eos % (Auto) 0.9 L Baso % (Auto) 0.7 Neut # (Auto) 2500 Lymph # (Auto) 4600 H [place] # (Auto) 500 Eos # (Auto) 100 Baso # (Auto) 100 PT 10.4 INR 0.9 Sodium 141 Potassium 3.5 Chloride 101 Carbon Dioxide 27 BUN 11 Creatinine 0.92 Estimated GFR > 60 BUN/Creatinine Ratio 12.0 Glucose 115 H Calcium 9.8 Magnesium Total Bilirubin 0.3 Conjugated Bilirubin Unconjugated Bilirubin AST 29 ALT 17 Alkaline Phosphatase 61 Total Creatine Kinase 62 CK-MB (CK-2) TNP CK-MB (CK-2) Rel Index TNP Troponin I < 0.012 Total Protein 8.8 H Albumin 5.2 H Globulin 3.6 Albumin/Globulin Ratio 1.4 Triglycerides Cholesterol LDL Cholesterol, Calc HDL Cholesterol TSH Free T4 Ethyl Alcohol 185 H SARS-CoV-2 (PCR) 10/30/21 10/30/21 10/31/21 19:10 20:25 05:20 WBC 7.7 RBC 4.15 Hgb 12.0 Hct 34.7 L MCV 83.8 MCH 28.9 MCHC 34.5 RDW 13.9 Plt Count 273 Neut % (Auto) 65.4 D Lymph % (Auto) 25.7 D [place] % (Auto) 7.4 Eos % (Auto) 0.8 L Baso % (Auto) 0.7 Neut # (Auto) 5000 Lymph # (Auto) 2000 [place] # (Auto) 600 Eos # (Auto) 100 Baso # (Auto) 100 PT INR Sodium Potassium Chloride Carbon Dioxide BUN Creatinine Estimated GFR BUN/Creatinine Ratio Glucose Calcium Magnesium Total Bilirubin Conjugated Bilirubin Unconjugated Bilirubin AST ALT Alkaline Phosphatase Total Creatine Kinase CK-MB (CK-2) CK-MB (CK-2) Rel Index Troponin I Total Protein Albumin Globulin Albumin/Globulin Ratio Triglycerides Cholesterol LDL Cholesterol, Calc HDL Cholesterol TSH < 0.02 L Free T4 1.50 Ethyl Alcohol SARS-CoV-2 (PCR) Negative 10/31/21 10/31/21 10/31/21 05:20 05:20 05:20 WBC RBC Hgb Hct MCV MCH MCHC RDW Plt Count Neut % (Auto) Lymph % (Auto) [place] % (Auto) Eos % (Auto) Baso % (Auto) Neut # (Auto) Lymph # (Auto) [place] # (Auto) Eos # (Auto) Baso # (Auto) PT INR Sodium 139 Potassium 3.9 Chloride 105 Carbon Dioxide 23 BUN 14 Creatinine 0.92 Estimated GFR > 60 BUN/Creatinine Ratio 15.2 Glucose 90 Calcium 8.9 Magnesium 1.8 Total Bilirubin 0.4 Conjugated Bilirubin 0.0 Unconjugated Bilirubin 0.2 AST 24 ALT 14 Alkaline Phosphatase 53 Total Creatine Kinase CK-MB (CK-2) CK-MB (CK-2) Rel Index Troponin I < 0.012 Total Protein 7.1 Albumin 4.2 Globulin 2.9 Albumin/Globulin Ratio 1.4 Triglycerides 183 H Cholesterol 145 LDL Cholesterol, Calc 46 HDL Cholesterol 62 H TSH Free T4 Ethyl Alcohol SARS-CoV-2 (PCR) [facility] Medical History CAD (coronary artery disease) (2017) Cataract (2017) Cervical spine disease (1962) Chicken pox (1957) Fractures (2014) Gastric ulcer Heart disease Hypertension (2014) Measles (1955) Mumps (1954) Osteoporosis (2014) Scoliosis (1962) Surgical History Anesthesia complication History of cholecystectomy (2000) History of hernia repair (1998) History of hysterectomy (1973) History of spinal fusion (1962) Family History (Updated 10/31/21 @ 00:13 by CRISTEL Kothari) Father Heart disease Hypertension Cardiac arrest Mother Alzheimer disease Cardiac arrest Brother Heart disease Brother Heart disease Hyperlipidemia Hypertension Cardiac arrest Grandfather No problems noted. Grandmother No problems noted. Grandfather Heart disease Hypertension Grandmother No problems noted. Social History household members: spouse Smoking Status: Never smoker alcohol intake: current Discharge Plan Discharge Plan Patient Disposition: Home Provider Discharge Comment: You were admitted to the hospital with an episode of syncope or passing out. No exact etiology was found. Given your family history echocardiogram was obtained and was unremarkable. Please follow up with your stummel selector as previously scheduled. No medication changes are currently recommended. Discharge orders & Medications Prescriptions: Continued rosuvastatin 20 mg tablet 20 mg PO DAILY Qty: 90 1RF lisinopril 20 mg tablet 20 mg PO DAILY Qty: 30 0RF Rx Instructions: PATIENT NEEDS TO EST. CARE W/NEW PCP PRIOR TO FUTURE FILLS. PLEASE CALL CLINIC TO SCHED. 09/26/19 trazodone 100 mg Tablet 100 mg PO BEDTIME Follow up/Referrals: Vida Valverde DO [Primary Care Provider] - Diet/Activity/Treatments Diet: Diet as Tolerated Activity: As tolerated Visit Report/Discharge Packet Instructions: DI for Syncope in Adults (Fainting) Discharge Data Primary Care Provider: Vida Valverde Attending Provider: Sarah Garcia VTE Deep Vein Thrombosis/Pulmonary Embolism Present on Admission: No
== END 2021-10-31 13:42 | disposition home or self-care (01) ==
LOC: ED 22:35 → AC 22:45
PROVIDERS: Internal Medicine; Admitting Provider Nurse Practitioner Family; Emergency Provider Emergency Medicine; PCP Family Medicine; Visit Provider Nurse Practitioner Family
DX: R55 Syncope and collapse (principal); R41.3 Other amnesia; W18.30XA Fall on same level, unspecified, initial encounter; Y92.89 Other specified places as the place of occurrence of the external cause; I10 Essential (primary) hypertension; E78.5 Hyperlipidemia, unspecified; G47.00 Insomnia, unspecified; Z20.822 Contact with and (suspected) exposure to COVID-19
CPT/HCPCS: 36415; 70450; 80048; 80053; 80061; 80076; 80320; 82550; 82962; 83735; 84439; 84443; 84484; 85025; 85610; 87635; 93005; 93010; 93306; 99283; 99284; C9803; G0378